=== PATIENT | female | born 1990 | race African-American/Black ===

== ENCOUNTER 2020-04-20 13:21 | Emergency (ER) | payer OTHER ==
[2020-04-20 13:37] VITALS: BP 162/98; PULSE 87; BMI 41.4
[2020-04-20 13:42] VITALS: TEMP 98.1
== END 2020-04-20 15:26 | disposition home or self-care (01) ==
LOC: JERFT 13:21
PROC: 0HQGXZZ Repair Left Hand Skin, External Approach (ICD-10-PCS; principal; 2020-04-20)
DX: S61.217A Laceration without foreign body of left little finger without damage to nail, initial encounter (principal)
CPT/HCPCS: 12001-25; 99284-25

== ENCOUNTER 2023-04-30 04:22 | Day surgery (SDC) | payer OTHER ==
[2023-04-29 13:21] VITALS: BMI 46.4
[2023-04-30 11:51] VITALS: TEMP 97.8
[2023-04-30 13:09] VITALS: BP 134/85; PULSE 63; RESP 20
== END 2023-04-30 13:20 | disposition home or self-care (01) ==
LOC: JASU-ENDO 04:22
PROVIDERS: ATTEND Internal Medicine Gastroenterology
PROC: 0DB78ZX Excision of Stomach, Pylorus, Via Natural or Artificial Opening Endoscopic, Diagnostic (ICD-10-PCS; 2023-04-30)
PROC: 0DB68ZX Excision of Stomach, Via Natural or Artificial Opening Endoscopic, Diagnostic (ICD-10-PCS; principal; 2023-04-30 11:45)
DX: Z01.818 Encounter for other preprocedural examination (principal); K29.50 Unspecified chronic gastritis without bleeding; K21.00 Gastro-esophageal reflux disease with esophagitis, without bleeding; K44.9 Diaphragmatic hernia without obstruction or gangrene; E66.8 Other obesity; Z68.42 Body mass index [BMI] 45.0-49.9, adult; I10 Essential (primary) hypertension
CPT/HCPCS: 81025; 88305-TC; 88342-TC